=== PATIENT | male | born 2000 | race Two or more races ===

== ENCOUNTER 2025-02-22 18:28 | Emergency (ER) | payer OTHER ==
[~2025-02-22] VITALS: Ht 170.2 cm; Wt 82.6 kg
[2025-02-22] MEDS: ondansetron 4mg rapidly disintigrating tab PO ONE (18:54)
[2025-02-22] MEDS: ibuprofen 200mg tablet PO ONE (18:54)
[2025-02-22 21:15] VITALS: BP 110/78; PULSE 74; RESP 18; TEMP 98.6; O2SAT 99
== END 2025-02-22 21:16 | disposition home or self-care (01) ==
LOC: ER 18:29
DX: B34.9 Viral infection, unspecified (principal); R19.7 Diarrhea, unspecified
CPT/HCPCS: 87502; 87503; 99283